=== PATIENT | female | born 1935 | race Caucasian/White ===

== ENCOUNTER 2020-03-08 12:21 | Outpatient (CLI) | payer MEDICARE, BC, SELFPAY ==
[2020-03-08 12:38] VITALS: BMI 26.4
[2020-03-08 13:28] LABS: Iron 14 ug/dL (37-170)
[2020-03-08 13:45] LABS: Total Iron Binding Capacity 386 ug/dL (265-497)
[2020-03-08 13:53] LABS: Basophils # 0.1 K/mm3 (0-0.2); Eosinophils # 0.1 K/mm3 (0.0-0.4); Eosinophils % 1.6 % (0.1-12.0); Lymphocytes # 1.2 K/mm3 (0.7-4.5); Lymphocytes % 20.5 % (10-50); Mean Corpuscular HGB Conc 37.6 g/dL (31.8-35.4); Mean Corpuscular Hemoglobin 29.4 pg (27.0-31.2); Mean Corpuscular Volume 78.2 fl (81-99); Mean Platelet Volume 7.3 fl (7.4-10.4); Monocytes # 0.5 K/mm3 (0.1-1.0); Monocytes % 9.2 % (1.7-9.3); Neutrophils # 3.8 K/mm3 (1.8-7.8); Neutrophils % 67.7 % (37.0-80.0); Platelet Count 514 K/mm3 (142-424); Red Blood Count 1.93 M/mm3 (4.20-5.40); White Blood Count 5.7 K/mm3 (4.8-10.8)
[2020-03-08 13:57] LABS: Hematocrit 15.1 % (37.0-47.0)
[2020-03-08 14:15] LABS: Hemoglobin 5.7 g/dL (12.2-16.2)
[2020-03-08 14:22] LABS: Reticulocyte % (Auto) 13.3 % (0.9-3.2)
[2020-03-08 14:35] LABS: Vitamin B12 396 pg/mL (239-931)
[2020-03-08 14:41] VITALS: BP 139/74; PULSE 75; RESP 20; TEMP 36.7; O2SAT 100
[2020-03-08 15:56] LABS: Ferritin 7.04 ng/ml (11.1-264)
== END 2020-03-08 14:35 | disposition home or self-care (01) ==
LOC: INF 12:27
PROVIDERS: PCP Family Medicine; Visit Provider Family Medicine
DX: D64.9 Anemia, unspecified (principal)
CPT/HCPCS: 36415; 82607; 82728; 82746; 83540; 83550; 85025; 85044; 86850; 86870

== ENCOUNTER 2020-03-09 08:12 | Outpatient (CLI) | payer MEDICARE, BC, SELFPAY ==
[2020-03-09] VITALS (30 sets, daily range): BP systolic 117–155; BP diastolic 49–90; PULSE 64–88; RESP 18; TEMP 36.2–36.6; O2SAT 97–99; BMI 27.3
[2020-03-09 17:11] LABS: Hematocrit 26.1 % (37.0-47.0); Hemoglobin 11.3 g/dL (12.2-16.2)
== END 2020-03-09 16:33 | disposition home or self-care (01) ==
LOC: INF 08:12
PROVIDERS: Visit Provider Family Medicine
DX: D64.9 Anemia, unspecified (principal)
CPT/HCPCS: 36430; 85014; 85018; P9016

== ENCOUNTER → 2020-04-20 07:12 | Outpatient (CLI) | payer MEDICARE, BC, SELFPAY ==
[2020-04-20 08:31] LABS: Coronavirus 19 IgG Antibody Negative (Negative); Coronavirus 19 IgM Antibody Negative (Negative)
== END ==
PROVIDERS: Visit Provider Internal Medicine Gastroenterology
DX: Z01.812 Encounter for preprocedural laboratory examination (principal)
CPT/HCPCS: 36415; 86328

== ENCOUNTER 2020-04-22 06:52 | Day surgery (SDC) | payer MEDICARE, BC, SELFPAY ==
[2020-04-18 07:48] VITALS: BMI 24.7
[2020-04-22] VITALS (7 sets, daily range): BP systolic 107–154; BP diastolic 57–72; PULSE 58–93; RESP 16–20; TEMP 36.5–37.1; O2SAT 97–100
--- NOTE | 2020-04-22 08:12 | P.PCN_ITS ---
[facility] Procedure Note Procedure Note:: Upper Endoscopy Procedure Report: Esophagogastroduodenoscopy with cold biopsies and TTS balloon dilation Endoscopost: Raghav Kaur II, MD Referring Physician: Ori Mackenzie MD Date of Procedure: April 22, 2020 Equipment: Olympus GIF 190 standard upper endoscope Sedation: MAC sedation Indications: Mrs. Huff is an 84-year-old female who is here for diagnostic upper endoscopy and colonoscopy secondary to iron deficiency anemia. She reports no melena, hematochezia or bright red blood per rectum. She previously had some throat tightness/globus sensation. She has had some reduced appetite with minor weight loss (5 pounds). She reports no use of anticoagulation or NSAIDs. She reports no heartburn, reflux, indigestion or dyspepsia. Procedure: Prior to the procedure, a history and physical exam was performed, and patient's medications and allergies were reviewed. The risks, benefits and alternatives of the sedation and procedure were discussed with the patient. All questions were answered and informed consent was obtained. The patient was brought to the procedure room. Patient identification and proposed procedure were verified by the physician and the nurse. The patient was placed in a left lateral decubitus position and the scope was passed under direct vision. Throughout the procedure, the patient's blood pressure, pulse, and oxygen saturations were monitored continuously. The upper GI endoscopy was accomplished without difficulty. The patient tolerated the procedure well. Findings: The scope was passed directly into the upper esophagus and advanced to the fourth portion of the duodenum and proximal jejunum. The post bulbar duodenum and duodenal bulb were normal with normal mucosa and conniventes. Cold biopsies were obtained to rule out celiac disease. The scope was withdrawn through a normal duodenal bulb and pylorus into the stomach. There was some mild reactive gastropathy of the antrum. There was mild chronic gastritis of the body and fundus of the stomach. Upon retroflexion there was a moderate/medium sized 4 to 5 cm hiatal hernia with linear John's erosions. Cold biopsies were taken from the antrum and body of the stomach to rule out H. pylori. The scope was then withdrawn into the esophagus. There was a serrated Z-line and biopsies were taken at the GE junction. There was also a distal Schatzki's ring. There was some presbyesophagus. The Schatzki's ring and esophagus was dilated maximally to 60 [place]/20 mm with a TTS hydrostatic balloon. The remainder of the esophageal mucosa was normal. Impression: 1. Medium sized 4 to 5 cm hiatal hernia with linear John's erosions 2. Schatzki's ring dilated to 20 mm 3. Presbyesophagus 4. Linear reactive gastropathy with mild chronic gastritis Plan: I do feel that the linear John's erosions are most likely responsible for her iron deficiency anemia. I would continue iron supplementation. I will follow-up the biopsies to rule out H. pylori and I will place her on PPI therapy and consider misoprostol. I will proceed with diagnostic colonoscopy.
--- NOTE | 2020-04-22 08:39 | HMH.PROC ---
[facility] Procedure Note Procedure Note:: Colonoscopy Procedure Report: Colonoscopy with cold snare polypectomy and cold biopsies Endoscopist: Raghav Kaur II, MD Referring physician: Ori Mackenzie MD Date of Procedure: April 22, 2020 Equipment: Olympus 190 variable stiffness pediatric colonoscope Sedation: MAC sedation Indication: Mrs. Huff is an 84-year-old female with iron deficiency anemia. She had a hemoglobin of 5.4 and hematocrit 21.1 with MCV of 71. She is currently on iron supplementation orally. She had 3 units of PRBCs transfused as an outpatient. Her iron studies confirmed iron deficiency anemia. She had a colonoscopy in 2014 and had no colon polyps. Her EGD showed John's erosions. She has had some lightheadedness and dyspnea on exertion. She reports no bright red rectal bleeding or hematochezia. She reports no abdominal pain or family history of colon cancer. She has had only minor weight loss. She reports no use of NSAIDs or anticoagulation. Procedure: Prior to the procedure, a history and physical exam was performed, and patient's medications and allergies were reviewed. The risks, benefits and alternatives of the sedation and procedure were discussed with the patient. All questions were answered and informed consent was obtained. The patient was brought to the procedure room. Patient identification and proposed procedure were verified by the physician and the nurse. The patient was placed in a left lateral decubitus position and the scope was passed under direct vision. Throughout the procedure, the patient's blood pressure, pulse, and oxygen saturations were monitored continuously. The colonoscopy was accomplished without difficulty. The patient tolerated the procedure well. Findings: On digital rectal examination there was normal rectal tone. There were no external hemorrhoids. The colonoscope was introduced through the anal canal to the rectum and advanced to the cecum. The ileocecal valve and appendiceal orifice were identified. The scope was advanced a short distance into the ileum which appeared grossly normal. The scope was then withdrawn into the colon. There was a single 3 mm polyp in the descending colon removed via cold snare polypectomy. There were extensive scattered diverticuli throughout the colon but more predominantly in the descending and sigmoid colon (LEFT colon). The rectum itself was normal. Upon retroflexion within the rectum there were grade 2-3 internal hemorrhoids. There was a small solitary rectal ulcer at the pectinate line possibly related to some rectal prolapse. The preparation was excellent throughout with [place] Preparation Score of 9. The cecal time was 12 minutes. Impression: 1. Diminutive descending polyp 2. Extensive pandiverticulosis 3. Grade 2-3 internal hemorrhoids with some rectal prophylaxis and small solitary rectal ulcer at pectinate line Plan: I do not feel that the findings are the etiology of her profound iron deficiency anemia. I do feel that this iron deficiency anemia is likely related to her John's erosions. I would like to do Hemoccult testing. I will also check hemogram and iron studies today. I would recommend outpatient parenteral iron infusion. She will not require any further preventive colonoscopy. If she is Hemoccult positive, I would consider PillCam (video capsule enteroscopy)
--- NOTE | 2020-04-22 08:50 | P.PN_ITS ---
[facility] Anesthesia Checklist - Patient Identification Patient Identification: Arm Band - Structural Data Admitted From: Home Planned Operative Procedure/s: egd/colonoscopy Consent for Planned Operative Procedure(s) Verified: Yes Verified Documents: Surgical Consent, History and Physical - NPO Status Verified Time NPO: 00:00 - Additional verifications Anesthesia Reactions: No - Airway Assessment C-Spine Mobility Assessed: Yes (mp2) TMJ Mobility Assessed: Yes Dentition: Good Dentition - Neurological Assessment Level of Consciousness: Awake, Alert - Anesthesia Plan Anesthesia Risk discussed: Yes Anesthesia Plan: Verified ASA Class: II Anesthesia Type: MAC [facility] History I have reviewed the patient's past medical history: Yes Medical History: Reports:: Anxiety, Hyperlipidemia, Hypertension Denies:: Cancer, Diabetes Mellitus Type 1, Diabetes Mellitus Type 2, Internal Pacemaker, MRSA, Seizures *Have you ever received a pneumonia vaccine?: Yes *Have you received a flu vaccine this season?: Yes Other Medical History: Reports: Anemia Anesthesia experience/problems:: nac Laterality Cases: Left: Arthroscopy Shoulder Other Surgeries: Yes: Appendectomy, Hysterectomy-Total, Other. No: Pacemaker Amputation: No - *Social History Last grade of school completed: High school graduate Smoking Status: Never smoker Alcohol Intake: never Substance Use Type: denies use *Occupational Status:: retired Housing: house Household Members: none *Travel in the last 8 weeks: None Family Hx:: Unable to obtain
[2020-04-22 10:15] LABS: Basophils % 0.6 % (0.1-2.0); Eosinophils % 0.3 % (0.1-12.0); Hematocrit 30.2 % (37.0-47.0); Lymphocytes # 1.1 K/mm3 (0.7-4.5); Lymphocytes % 19.7 % (10-50); Mean Corpuscular HGB Conc 36.3 g/dL (31.8-35.4); Mean Corpuscular Hemoglobin 31.2 pg (27.0-31.2); Mean Corpuscular Volume 86.2 fl (81-99); Monocytes # 0.3 K/mm3 (0.1-1.0); Monocytes % 5.4 % (1.7-9.3); Neutrophils # 4.3 K/mm3 (1.8-7.8); Platelet Count 250 K/mm3 (142-424); Red Blood Count 3.51 M/mm3 (4.20-5.40); White Blood Count 5.8 K/mm3 (4.8-10.8)
[2020-04-22 10:18] LABS: Red Cell Distribution Width 30.6 % (11.5-17.5)
[2020-04-22 10:27] LABS: Iron 41 ug/dL (37-170)
[2020-04-22 10:37] LABS: Total Iron Binding Capacity 282 ug/dL (265-497)
[2020-04-22 11:05] LABS: Ferritin 31.7 ng/ml (11.1-264)
== END 2020-04-22 09:35 | disposition home or self-care (01) ==
LOC: OUTP 06:54
PROVIDERS: PCP Family Medicine; Visit Provider Internal Medicine Gastroenterology
PROC: 0DJ08ZZ Inspection of Upper Intestinal Tract, Via Natural or Artificial Opening Endoscopic (ICD-10-PCS; CPT 43235; principal; 2020-04-22 08:00)
DX: K62.89 Other specified diseases of anus and rectum (principal); K63.5 Polyp of colon; K57.30 Diverticulosis of large intestine without perforation or abscess without bleeding; K64.1 Second degree hemorrhoids; K62.6 Ulcer of anus and rectum; K25.9 Gastric ulcer, unspecified as acute or chronic, without hemorrhage or perforation; K44.9 Diaphragmatic hernia without obstruction or gangrene; K22.2 Esophageal obstruction; K31.9 Disease of stomach and duodenum, unspecified; K29.50 Unspecified chronic gastritis without bleeding; K22.8 Other specified diseases of esophagus; D50.9 Iron deficiency anemia, unspecified; Z87.19 Personal history of other diseases of the digestive system
CPT/HCPCS: 43239; 43249; 45380; 45385; 36415; 82728; 83540; 83550; 85025; 88305; C1726

== ENCOUNTER → 2020-04-24 04:45 | Outpatient (CLI) | payer MEDICARE, BC, SELFPAY ==
[2020-04-25 17:51] LABS: Occult Blood,Stool Positive (Negative)
== END ==
PROVIDERS: Visit Provider Internal Medicine Gastroenterology
DX: D50.9 Iron deficiency anemia, unspecified (principal)
CPT/HCPCS: 82272; G0328

== ENCOUNTER 2020-04-25 09:42 | Outpatient (CLI) | payer MEDICARE, BC, SELFPAY ==
[2020-04-25 09:50] VITALS: BP 137/68; PULSE 59; RESP 18; TEMP 36.6; O2SAT 100
[2020-04-25 10:20] VITALS: BP 136/62; PULSE 60; RESP 18
== END 2020-04-25 10:20 | disposition home or self-care (01) ==
LOC: INF 09:42
PROVIDERS: Visit Provider Internal Medicine Gastroenterology
DX: D50.9 Iron deficiency anemia, unspecified (principal); K57.92 Diverticulitis of intestine, part unspecified, without perforation or abscess without bleeding
CPT/HCPCS: 82272; 96374; G0328; Q0138

== ENCOUNTER → 2020-04-25 16:43 | Outpatient (CLI) | payer MEDICARE, BC, SELFPAY ==
[2020-04-25 17:51] LABS: Occult Blood,Stool Positive (Negative)
[2020-04-26 11:14] LABS: Occult Blood,Stool Positive (Negative)
== END ==
PROVIDERS: Visit Provider Internal Medicine Gastroenterology
DX: D50.9 Iron deficiency anemia, unspecified (principal)
CPT/HCPCS: 82272; G0328

== ENCOUNTER → 2020-04-29 09:43 | Outpatient (CLI) | payer MEDICARE, BC, SELFPAY ==
[2020-04-29 10:05] VITALS: BP 140/68; PULSE 77; RESP 18; TEMP 36.1; O2SAT 95
[2020-04-29 10:28] VITALS: BP 142/64; PULSE 72; RESP 18
== END ==
PROVIDERS: Visit Provider Internal Medicine Gastroenterology
DX: D50.9 Iron deficiency anemia, unspecified (principal)
CPT/HCPCS: 96374; Q0138

== ENCOUNTER 2020-04-30 18:10 | Emergency (ER) | payer MEDICARE, BC, SELFPAY ==
[2020-04-30 18:20] VITALS: BP 140/70; PULSE 94; RESP 17; TEMP 37.4; O2SAT 98; BMI 21.9
--- NOTE | 2020-04-30 18:37 | HMH.EDUTC ---
[facility] [place] Disposition Clinical Impression: Nausea Disposition: Home, Self-Care Condition on Discharge: Good Instructions: DI for Nausea -- Adult, Ondansetron Additional Instructions: ? Avoid fruit juices, as these do not replace minerals and can actually increase diarrhea. ? Children and adults can use sports drinks to replenish electrolytes. Younger children and infants should use products formulated for children, like oral rehydration solutions. ? Eat food in small amounts and let your stomach recover. ? Get lots of rest. You may feel tired or weak. ? No greasy or fried foods for the next 24-48 hours BRAT diet Bananas Rice Apples and [place] ? Make sure to drink plenty of liquids ? Return if needed ? Straight to ER if any life threatening symptoms ? Zofran as prescribed ? Follow up with family doctor in the next 48-72 hours if no improvement or any worsening of symptoms Prescriptions: Ondansetron [Zofran 4mg ODT] 4 mg PO TIDP PRN #9 tab PRN Reason: Nausea Transmission Status: Received by [id number] Referrals: Cristiane Corrales MD [Primary Care Provider] - As needed Time of Disposition: 19:15 Medical Decision Making - Carlitos Inquiry Pt receiving controlled substance: No Carlitos was queried for this patient: No Vital Signs: 04/30/20 18:20 04/30/20 19:17 Temperature 99.3 F 99.3 F Temperature Source Oral Pulse Rate 94 H Pulse Rate [Right Brachial] 94 H Respiratory Rate 17 17 Blood Pressure 140/70 Blood Pressure [Right Arm] 140/70 Blood Pressure Mean [Right Arm] 93 Blood Pressure Source [Right Arm] Automatic Cuff Blood Pressure Position [Right Arm] Sitting 02 Sat by Pulse Oximetry 98 Oxygen Delivery Method Room Air - Lab Data Lab Results 04/30/20 18:45: Influenza Type A Ag Negative, Influenza Type B Ag Negative Orders (Tests/Meds): ED MEDICATIONS Discontinued Medications Generic Name Dose Route Start Last Admin Trade Name Freq PRN Reason Stop Dose Admin Ondansetron HCl 4 mg 04/30/20 18:39 04/30/20 18:49 Ondansetron 4mg Odt SL 04/30/20 18:40 4 mg ONCE ONE Administration ORDERS Category Date Time Status Covid-19 Nasal PCR ([facility]) Routine Lab 04/30/20 18:50 Received Medical Decision Narrative: Discussed with patient possible side effects after iron infusion and patient states that after zofran nausea is much better and almost gone Still denies any other symptoms Patient going to stay with family for a few days and family advised that if symptoms returned or worsened or if patient started having any bleeding from bowels, in stool or vomiting blood straight to ER patient denies any of those at this time [facility] [place] HPI - General Stated complaint: nausous Time Seen by Provider: 04/30/20 18:37 Mode of Arrival: Ambulatory Source of Information: Patient Limitations: No Limitations Description of Symptoms (Recalled from Triage Doc. by RN): PATIENT C/O FEVER, LIGHT HEADED, SHAKY, AND NAUSEA X 2 DAYS HEENT Symptoms (Recalled from RN notes): No Resp Symptoms (Recalled from RN notes): No Skin Symptoms (Recalled from RN notes): No MS Symptoms (Recalled from RN notes): No Functional Status (Recalled from RN notes): WNL - History of Present Illness Provider Complaint: Patient states that she got an iron infusion yesterday State that yesterday evening she was having some chills and having nausea States that today she was still having some chills and nausea States that she has not had any vomiting but felt like she was going too and her stomach was tossing like she was going to be sick. Son reports that she looked a little shaky and patient reports that she was chilling because she had a fever. Son states temp was 101.0 and they give her some Tylenol and fever came down and her chills/shakyness stopped Patient states that she was tested for COVID about a week and half ago but has been to the doctor several times and here to the hospital and unsure if she may have been exposed -
[2020-04-30 19:02] LABS: UTC Influenza A Antigen Negative (Negative); UTC Influenza B Antigen Negative (Negative)
[2020-04-30 19:17] VITALS: BP 140/70; PULSE 94; RESP 17; TEMP 37.4; O2SAT 98
== END 2020-04-30 19:18 | disposition home or self-care (01) ==
PROVIDERS: Emergency Provider Nurse Practitioner; PCP Family Medicine
DX: R42 Dizziness and giddiness (principal); R11.0 Nausea; Z20.822 Contact with and (suspected) exposure to COVID-19; Z91.040 Latex allergy status; E78.5 Hyperlipidemia, unspecified; I10 Essential (primary) hypertension; F41.9 Anxiety disorder, unspecified; Z79.899 Other long term (current) drug therapy
CPT/HCPCS: G0463; 87804; 99202; U0003

== ENCOUNTER → 2022-12-03 13:29 | Outpatient (CLI) | payer MEDICARE, BC, SELFPAY ==
--- NOTE | 2022-12-03 | CA_ITS ---
APPROVED REPORT EXAM: Comprehensive 2D, Doppler, and color-flow Echocardiogram Radio Antenna Installer: Lucía Zepeda CRT Ht: 5 ft 1 in Wt: 135lbs BSA: 1.60 BP: 140/70 mmHg Indications: Fatigue, Peripheral Edema, Hyperlipidemia, Hypertension/HDD 2D Dimensions LVOT 1.82 cm (M/F) 1.5-2.5 LA Volume 37.30 mL LA Volume Index 22.70 mL/m2 (M/F) 16-34 M-Mode Dimensions RVDd 2.84 cm (0.9-2.6) LA Diam 3.74 cm (1.9-4.0) LVDd 4.21 cm (3.5-5.7) Ao Diam 2.83 cm (2.0-3.7) LVDs 2.32 cm (3.5-5.7) IVSd 1.02 cm (0.6-1.1) PWd 0.73 cm (0.6-1.1) EF (Teich) 76.60% FS 44.90% EDV (Teich) 79.00 mL TAPSE 2.33 (<1.7) ESV (Teich) 18.50 mL LV Diastology E Decel Time 180.00 (160-240 msec) E/A Ratio 1.09 MED E' 9.30 (< 7 cm/sec) MED A' 11.80 cm/s E'/MED E' Ratio 11.23 (>14) LAT E' 9.60 (<10 cm/sec) LAT A' 11.60 cm/s E/LAT E' Ratio 10.88 (>14) Aortic Valve AI PHT 523.00 ms AO Peak GR. 13.60 mmHg Mitral Valve MV A Velocity 96.00 (40-130 cm/s) E/A Ratio 1.09 MV Decel. Time 180.00 (160-240 ms) Pulmonary Valve PV Peak Velocity 100.00 (50-150 cm/s) Tricuspid Valve TR P. Velocity 264.00 cm/s RAP Estimate 10.00 mmHg RVSP 37.90 mmHg Left Ventricle The left ventricle is normal size. The left ventricular systolic function is normal. The left ventricular ejection fraction is within the normal range. There is normal left ventricular wall thickness. There is normal LV segmental wall motion. The left ventricular diastolic function is normal. LVEF is 55%. Right Ventricle The right ventricle is normal size. The right ventricular systolic function is normal. Atria Left atrium is mildly dilated. The right atrium size is mildly dilated. There is no Doppler evidence of interatrial shunt. Aortic Valve THe aortic valve opens well. The aortic valve is trilaeflet. There is no aortic valvular stenosis. Mild aortic regurgitation. Mitral Valve Mild mitral annular calcification. The mitral valve leaflets are mildly thickened. No evidence of mitral valve stenosis. Mild mitral regurgitation. Tricuspid Valve The tricuspid valve leaflets are thin and pliable. Mild tricuspid regurgitation. RVSP is 25-30 mmHg. Pulmonic Valve The pulmonary valve is normal in structure. Trace pulmonic regurgitation. Great Vessels The aortic root is normal in size. The ascending aorta is normal in size. IVC is normal in size and collapses >50% with inspiration. Pericardium There is no pericardial effusion. Other Information Study Quality: Fair Conclusion Normal biventricular systolic function. Mild biatrial dilation. Mild AI, MR, TR. Electronically signed by : Della Sheldon MD 12/04/2022 23:14:37
== END ==
PROVIDERS: PCP Family Medicine; Visit Provider Family Medicine
DX: R60.0 Localized edema (principal); I10 Essential (primary) hypertension; R53.83 Other fatigue; R63.5 Abnormal weight gain
CPT/HCPCS: 93306

== ENCOUNTER 2024-08-10 08:44 | Emergency (ER) | payer MEDICARE, BC, SELFPAY ==
[2024-08-10] VITALS (10 sets, daily range): BP systolic 130–174; BP diastolic 67–105; PULSE 56–74; RESP 16–18; TEMP 36.6–36.7; O2SAT 90–98; BMI 28.3
--- NOTE | 2024-08-10 08:54 | ECG_ITS ---
APPROVED REPORT Exam: Resting ECG HR:63 bpm ECG Measurements Heart Rate 63 AXES UT 208 P 91 QRSd 86 QRS 74 QT 363 T 67 QTc 370 Conclusion SINUS RHYTHM LOW QRS VOLTAGE IN PRECORDIAL LEADS [QRS DEFLECTION < 1.0 mV IN CHEST LEADS] No STEMI Electronically signed by : DEBI PARSONS, 08/11/2024 02:30:35
--- OUTSIDE RECORDS SUMMARY | 2024-08-10 09:10 | XMS_ITS | Data Portability ---
Author Organization [facility]EN[facility] Address [address] [place] [address] Care Team Providers Care Rodeo Rider Name Role Phone SONIA BULL Primary Care Provider [phone] Assessment Encounter Date Assessment Date Assessment LastModified by Organization Details LastModified Time 11/15/2020 11/15/2020 ASSESSMENT: DJD left knee PLAN: Fabiana has fairly advanced degenerative changes radiographically. Waning efficacy from steroid injections. We did discuss additional conservative and surgical treatment options. She has had some relief with viscosupplementation in the remote past, and is interested in hyaluronic acid once again. I would recommend Synvisc today, which she is amenable to. She will continue with Tylenol, and activity modification as needed. We will arrange for follow-up in 4 months time. If no relief from Synvisc, we can consider TKA as a definitive surgical option. [email or web address] Not available 11/15/2020 14:47:37 Plan of Treatment Reminders Order Date Submit Date Provider Last Modified By Organization Details Last Modified Time Details Appointments None record ed. Lab None record ed. Referral None record ed. Procedures None record ed. Surgeries None record ed. Imaging None record ed. Medication Orders None record ed. Patient TargetsNo targets recorded. Patient InstructionsNo instructions recorded. Reason for Referral None Reported. Results Created Date Observation Date Name Description Value Unit Range Abnormal Flag Note LastModifiedBy Organization Detail LastModifiedTime 09/17/19 24 09/17/2023 XR, knee, 4 or [facility] [address] [place] [address] Lori riggs Name: FABIANA Bridges JUANIS Bee : [birth year] 36 Patien t 08 Orderi ng Provid er: NASIR BURLINGTON EXAM DATE: 2023 EXAM: XR CODY KNEES COMPLE TE, 4 OR MORE VWS HISTOR Y: Bilate ral knee pain COMPAR PAUL: 021 FINDIN GS: There are severe degene rative change s in the left knee and modera te degene rative change s in the right knee. There is margin al spurri ng and medial joint space loss which is more promin ent on the left. No fractu re is identi fied. There is chondr ocalci nosis. IMPRES NATALIE: 1. There are severe degene rative change s in the left knee and modera te degene rative change s in the right knee. Interp reted By: Camden vines MD Electr onical ly Signed By: Camden vines MD on 09/17/19 9:13 AM [email or web address] [facility] [place] [address], [place], [address], 09/17/2023 10:52:40 09/17/19 24 09/17/2023 XR, hip, unila teral , 2 or 3 view [facility] [address] [place] [address] Lori riggs Name: FABIANA Bee : [birth year] 36 Patigregory t 08 Orderi ng Provid er: [facility] EXAM DATE: 2023 EXAM: XR RT HIP UNILAT ERAL, 2 OR 3 VWS COMPAR PAUL: HISTOR Y: Right hip pain. FINDIN GS: No fractu re is identi fied. There are mild degene rative change s in the right hip. There is minima l to mild medial joint space loss. There is mild margin al spurri ng. Limite d visual izatio n of the contra latera l hip demons trates mild degene rative change . IMPRES NATALIE: 1. There are mild degene rative change s in the right hip. Interp reted By: Camden vines MD Electr onical ly Signed By: Camden vines MD on 09/17/19 9:13 AM [email or web address] [facility] [place] [address] [place], [address], 09/17/2023 10:52:41 Result Notes Documentation Provider Name and Address Organization Details Recorded Time Xr, Knee, 4 Or More View : [facility] [place] [address] [place] [address] Patient Name: FABIANA STEIN Patient : 1935 Patient Ordering Provider: NASIR STOCK EXAM DATE: 09/17/2023 EXAM: XR CODY KNEES COMPLETE, 4 OR MORE VWS HISTORY: Bilateral knee pain COMPARISON: 07/28/2020 FINDINGS: There are severe degenerative changes in the left knee and moderate degenerative changes in the right knee. There is marginal spurring and medial joint space loss which is more prominent on the left. No fracture is identified. There is chondrocalcinosis. IMPRESSION: 1. There are severe degenerative changes in the left knee and moderate degenerative changes in the right knee. Interpreted By: Sean Mcfarland MD R STOCK PA-C [address] [place] [address], [address], [facility] 09/17/2023 10:52:40 Xr, Hip, Unilateral, 2 Or 3 View : [facility] [place] [address] [place] [address] Patient Name: FABIANA STEIN Patient : 1935 Patient Ordering Provider: NASIR STOCK EXAM DATE: 09/17/2023 EXAM: XR RT HIP UNILATERAL, 2 OR 3 VWS COMPARISON: 07/28/2020 HISTORY: Right hip pain. FINDINGS: No fracture is identified. There are mild degenerative changes in the right hip. There is minimal to mild medial joint space loss. There is mild marginal spurring. Limited visualization of the contralateral hip demonstrates mild degenerative change. IMPRESSION: 1. There are mild degenerative changes in the right hip. Interpreted By: Sean Mcfarland MD R STOCK PA-C [address] [place], [address], [facility] 09/17/2023 10:52:41 Problems No Known Problems Procedures Surgical History Date Name Laterality Status Provider Name and Address Organization Details Recorded Time 4 Synvisc One Injection completed Dilan Roth [facility] 09/10/2023 15:48:28 4 Synvisc One Injection completed Josefina Ho [facility] 03/12/2023 13:55:18 3 Injection Joint/Bursa, Major cancelled Paige Chapman [facility] 06/01/2022 12:09:14 3 Injection Joint/Bursa, Major completed Paige Chapman [facility] 03/21/2022 08:03:34 2 Injection Joint/Bursa, Major completed Sergio Wilson [facility] 06/27/2021 15:50:55 1 Synvisc One Injection completed KAYLEE RODRIGUEZ MD [address] [place], [address], [facility] 11/15/2020 14:46:39 1 Injection Joint/Bursa, Major completed Josefina Ho [facility] 07/28/2020 10:35:24 0 Injection Joint/Bursa, Major completed Sergio Wilson [facility] 10/01/2019 12:00:12 9 Injection Joint/Bursa, Major completed Sergio Wilson [facility] 11/04/2018 14:59:40 8 Injection Joint/Bursa, Major completed Sergio Wilson [facility] 12/31/2017 11:16:56 8 Injection Joint/Bursa, Major completed Emilie Mckenna [facility] 02/12/2017 14:58:00 7 Injection Joint/Bursa, Major completed KAYLEE RODRIGUEZ MD [address] [place], [address], [facility] 08/23/2016 10:25:03 Imaging Results None recorded. Procedure Notes None recorded. Medical Equipment None Reported. Allergies Allergen ID Allergen Name Allergen Category Reaction Reaction Severity Criticality Documentation Date Start Date Code Code System Note Provider Name and Address Organization Details Recorded Time 293620 latex environme nt,medica tion Not available Not available Not available 08/23/2016 15805 91 RxNorm Disha Eric butler [facility] 7 09:38:06 Medications Name Sig Start Date Stop Date Status Note LastModified by Organization Details LastModified Time meclizine 12.5 mg tablet Take 2 tablets 3 times a day by oral route. active Not Available Not Available No t Available potassium chloride 20 mEq oral packet Take 1 packet 4 times a day by oral route. active Not Available Not Available No t Available ferrous sulfate 325 mg (65 mg iron) tablet Take 1 tablet every day by oral route. active Not Available Not Available No t Available losartan 100 mg-hydrochlo rothiazide 12.5 mg tablet Take 1 tablet every day by oral route. active Not Available Not Available No t Available atorvastatin active Not Available Not Available Not Available valsartan 11/15 completed Not Available Not Available Not Available aspirin 11/15 completed Not Available Not Available Not Available metoprolol tartrate active Not Available Not Available Not Available clonazepam 11/15 completed Not Available Not Available Not Available Vitamin D2 active Not Available Not Av ailable Not Available Vitals Date Recorded Body height Provider Name an d Address Organization Details Last Updated DateTime 03/12/2023 154.94 cm Josefina Ho [facility] 03/12/2023 13:52:39 Date Recorded Body height Provider Name an d Address Organization Details Last Updated DateTime 03/21/2022 154.94 cm Paige Chapman [facility] 0 03/21/2022 08:03:13 Date Recorded Body height Body mass index (BMI) Body weight Systolic blood pressure Diastolic blood pressure Provider Name and Address Organization Details Last Updated DateTime 06/27/2021 154.94 cm 24.9 kg/m2 22704.19 g 120 mm[Hg] 80 mm[Hg] Sergio Wilson [facility] 15:50:32 Date Recorded Body height Provider Name an d Address Organization Details Last Updated DateTime 09/17/2023 154.94 cm Josefina Ho [facility] 09/17/2023 08:59:38 Date Recorded Body height Body mass index (BMI) Body weight Systolic blood pressure Diastolic blood pressure Provider Name and Address Organization Details Last Updated DateTime 11/15/2020 154.94 cm 24.9 kg/m2 69310.19 g 125 mm[Hg] 85 mm[Hg] Sergio Steve [facility] 13:46:53 Social History Question Answer Notes LastModified by Organizat ion Details LastModified Time Tobacco Smoking Status Never Smoker Disha butler [facility] 08/23/2016 09:40:11 What Was The Date Of Your Most Recent Tobacco Screening? 02/12/2017 Information n ot available 03/31/2019 Sex: Unknown Functional Status None recorded. Mental Status None recorded. Family History Nothing Reported. Medical History No medical history recorded. Gynecological HistoryNo gynecological history recorded. 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 M19.91 [id number] KAYLEE Kent MD [facility] [address] [place] [address] 02/12/2017 14:12:17 02/12/2017 15:21:41 Idiopathic osteoarthritis 721338471 M19.91 [id number] KAYLEE Kent MD [facility] [address] [place] [address] 12/31/2017 10:41:27 12/31/2017 11:40:43 Osteoarthritis of knee 085534065 M17.0 [id number] KAYLEE Kent MD [facility] [address] [place] [address] 11/04/2018 14:22:23 11/04/2018 15:20:12 Osteoarthritis of knee 276478280 M17.0 [id number] KAYLEE Kent MD [facility] [address] [place] [address] 10/01/2019 11:06:43 10/01/2019 12:15:31 Osteoarthritis of knee 187697096 M17.0 [id number] KAYLEE Kent MD [facility] [address] [place] [address] 07/28/2020 09:44:06 07/28/2020 11:23:16 Osteoarthritis of knee 575683707 M17.0 [id number] KAYLEE Kent MD [facility] [address] [place] [address] 11/15/2020 13:38:34 11/15/2020 14:41:04 Osteoarthritis of knee 245396841 M17.0 [id number] KAYLEE Kent MD [facility] [address] [place] [address] 06/27/2021 15:24:20 06/27/2021 16:53:06 Osteoarthritis of knee 059641256 M17.0 Bilateral CSI today. Follow-up as needed. [id number] BRIAN JURADO PA-C [facility] [address] [place] [address] 03/21/2022 07:57:27 03/21/2022 08:47:44 Osteoarthritis of right knee joint 2284931437 96080 M17.11 Osteoarthr itis of left knee joint 1846807775 07329 M17.12 [id number] KAYLEE Kent MD [facility] [address] [place] [address] 03/12/2023 13:44:57 03/12/2023 14:39:16 Bilateral osteoarthritis of knees 9558795021 41359 M17.0 Bilateral Synvisc today. Follow-up in 6 months for repeat Synvisc. At that point, we will obtain repeat x-rays of both knees, and the right hip. [id number] KAYLEE Kent MD [facility] [address] [address] 09/17/2023 08:53:18 09/17/2023 10:27:59 Bilateral osteoarthritis of knees 2174518002 17322 M17.0 Bilateral Synvisc today. Follow-up in 6 months for repeat Synvisc. If no significan t relief, we may need to discuss proceeding to TKA, especially on the left side Health Concerns Section Related Observation LastModified by Organization Detai ls LastModified Time None Recorded Concern Status LastModified by Organization Details LastModified Time None Recorded Advance Directives Directive None Recorded Payers Insurance Date Sequence Insurance Name Policy Number Policy Zuñiga Covered Member ID Zuñiga Member ID Guarantor Name 09/10/2016 2 UNSPECIFIED REMIT PAYOR Fabiana Stein 09/17/2023 1 [place] Fabiana Stein [id number] Fabiana Stein 09/23/2023 2 [place] [id number] Fabiana Stein [id number] Fabiana Stein Notes Date Note Type Note Provider Name and Address Organization Details Recorded Time 11/15/2020 text/html 11-15-20: Ms. Stein returns today in follow-up primarily on her left knee. Waning efficacy from steroid injections on that side. Previous injections have conferred nearly 9 months of relief, but her most recent injection in July, conferred only 2 months of relief. She continues to experience excellent relief from her right knee CSI given on the same day. No new trauma. She reports fairly global pain, crepitus, and mechanical symptoms. She rates her pain at 5/10 on average. KAYLEE RODRIGUEZ MD [facility] [place], [address], [facility] 11/15/2020 14:52:08 06/27/2021 text/html 06-27-21: No significant relief from Synvisc injections in November. Requesting bilateral CSI today. 11-15-20: Ms. Stein returns today in follow-up primarily on her left knee. Waning efficacy from steroid injections on that side. Previous injections have conferred nearly 9 months of relief, but her most recent injection in July, conferred only 2 months of relief. She continues to experience excellent relief from her right knee CSI given on the same day. No new trauma. She reports fairly global pain, crepitus, and mechanical symptoms. She rates her pain at 5/10 on average. KAYLEE RODRIGUEZ MD [address] [place], [address], [facility] 06/27/2021 17:01:45 03/12/2023 text/html 03-12-23: No significant improvement from bilateral CSI in March. Did not would like to revert back to Synvisc today. 03-31-22: Bilateral knee CSI 06-27-21:No significant relief from Synvisc injections in November. Requesting bilateral CSI today. 11-15-20: Ms. Stein returns today in follow-up primarily on her left knee. Waning efficacy from steroid injections on that side. Previous injections have conferred nearly 9 months of relief, but her most recent injection in July, conferred only 2 months of relief. She continues to experience excellent relief from her right knee CSI given on the same day. No new trauma. She reports fairly global pain, crepitus, and mechanical symptoms. She rates her pain at 5/10 on average. KAYLEE RODRIGUEZ MD [address] [place], [address], [facility] 03/12/2023 14:44:09 09/17/2023 text/html 09/16/23;Patient here for Cody knee synvisc injections marginal relief from last Synvisc injections in February. Prior to that, waning efficacy from CSI. 03-12-23:No significant improvement from bilateral CSI in March. Adna would like to revert back to Synvisc today. 03-31-22:Bilateral knee CSI 5-17-22:No significant relief from Synvisc injections in November. Requesting bilateral CSI today. 11-15-20: Ms. Stein returns today in follow-up primarily on her left knee. Waning efficacy from steroid injections on that side. Previous injections have conferred nearly 9 months of relief, but her most recent injection in July, conferred only 2 months of relief. She continues to experience excellent relief from her right knee CSI given on the same day. No new trauma. She reports fairly global pain, crepitus, and mechanical symptoms. She rates her pain at 5/10 on average. KAYLEE RODRIGUEZ MD [facility] [place], [address], [facility] 09/17/2023 18:30:27 OBGyn Episode No OBEpisode recorded.
--- NOTE | 2024-08-10 09:43 | CT_ITS ---
FINAL REPORT TECHNIQUE: Axial images were obtained of the lumbar spine by computed tomography. Coronal and sagittal reconstruction process performed. This study was performed with techniques to keep radiation doses as low as reasonably achievable (ALARA). Individualized dose reduction techniques using automated exposure control or adjustment of mA and/or kV according to the patient's size were employed. CLINICAL HISTORY: atraumatic back pain COMPARISON: None FINDINGS: CT LUMBAR SPINE: There is gliosis of the bar spine with a bush angle. There is minimal spondylolisthesis of L3 on L4, likely degenerative. L1-2: A mild annular bulge is present with mild bilateral neural foraminal narrowing. L2-3: Mild right neural foraminal narrowing is noted without significant canal stenosis. L3-4: A mild to moderate bulge is present, eccentric to the right, producing moderate right and mild left neural foraminal narrowing. L4-5: A moderate annular bulge is present with endplate hypertrophy eccentric to the left, producing moderate left and mild right neural foraminal narrowing. L5-S1: There is a mild posterolateral disc protrusion eccentric to the left producing moderate left neuroforaminal narrowing. IMPRESSION: Multilevel degenerative changes present as described above, without acute bony abnormality. Reviewed, Interpreted and Dictated by Naga Henderson MD Transcribed by Tootie Villareal Authenticated and . [facility]
--- NOTE | 2024-08-10 09:43 | CT_ITS ---
FINAL REPORT TECHNIQUE: After the administration of oral and intravenous contrast, axial images were obtained through the abdomen and pelvis by computed tomography. The study was performed with techniques to keep radiation dose as low as reasonably achievable, (ALARA). Individual dose reduction techniques using automated exposure control or adjustment of mA and/or kV according to the patient's size were employed. CLINICAL HISTORY: severe b/l nagging low back pain COMPARISON: None FINDINGS: CT ABDOMEN PELVIS WITH CONTRAST: Abdomen: The lung bases are clear. There is a large hiatal hernia, with at least half of the stomach within the chest cavity. There is fatty infiltration of the liver. The gallbladder is present. The spleen, pancreas, and adrenals appear unremarkable. Bilateral benign-appearing renal cysts are noted. The aorta is normal in caliber. There is no free fluid or adenopathy. Pelvis: The appendix is not identified. There is diverticulosis of the sigmoid colon without acute inflammatory change. The urinary bladder is incompletely distended. There is no free fluid or adenopathy. IMPRESSION: No acute intra-abdominal process. Note is made of a large hiatal hernia. Diverticulosis of the sigmoid colon without acute inflammatory change. Reviewed, Interpreted and Dictated by Naga Henderson MD Transcribed by Tootie Villareal Authenticated and [facility]
--- NOTE | 2024-08-10 09:43 | CT_ITS ---
FINAL REPORT CLINICAL HISTORY: low back pain and SI joint pain b/l COMPARISON: None FINDINGS: Axial images through the pelvis were performed by computed tomography. Sagittal and coronal reconstruction images were performed. This study was performed with techniques to keep radiation doses as low as reasonably achievable (ALARA). Individualized dose reduction techniques using automated exposure control or adjustment of mA and/or kV according to the patient's size were employed. No fracture is identified. No dislocation identified. No significant degenerative changes identified. No soft tissue abnormality. The sacroiliac joints are unremarkable in appearance. There are small mild degenerative cysts noted in the femoral heads bilaterally. IMPRESSION: No acute process. Reviewed, Interpreted and Dictated by Naga Henderson MD Transcribed by Tootie Villareal Authenticated and [facility]
--- NOTE | 2024-08-10 09:45 | HMH.EDGENADL ---
Discharge Plan Disposition Patient Disposition: Home, Self-Care Prescriptions Prescriptions: No Action atorvastatin 10 MG tablet 10 mg PO HS clonazepam 0.5 MG tablet 0.5 mg PO TID Rx Instructions: 1 tab in the am, 2 tabs at bedtime meclizine 12.5 MG tablet 12.5 mg PO NEEDED PRN (Reason: Dizziness) ergocalciferol (vitamin D2) 50,000 UNIT capsule 50,000 unit PO WEEKLY metoprolol tartrate 25 MG tablet 25 mg PO BID losartan-hydrochlorothiazide 1 EACH tablet 1 each PO DAILY potassium chloride 20 MEQ tablet extended release 20 meq PO DAILY ferrous sulfate 325 MG tablet 325 mg PO DAILY ondansetron 4 MG tablet,disintegrating 4 mg PO TIDP PRN (Reason: Nausea) Qty: 9 0RF Referrals Follow up/Referrals: Ori Mackenzie MD [Primary Care Provider, Medical] - See instructions Activity Restrictions/Add. Instructions Additional Instructions/Restrictions: At this time it was felt you are safe to be discharged home. If new or worsening symptoms please do not hesitate to return the emergency department. I have not found any dangerous causes of back pain for you today and suspect that it is a combination of arthritis and may be you pulled a muscle without knowing or slipped disc. Please follow-up with your family doctor for continued evaluation to ensure things are headed in the right direction as this should heal over the course of many weeks. Clinical Impressions Clinical Impression: Back pain, Sacroiliac joint pain Instructions Patient Instructions: DI for Low Back Pain Print Language Print Language: Mosotho Discharge ED Provider: Brando Pineda General Adult HPI General Chief complaint: Back Pain/Injury Stated complaint: Severe Pain in Lower Back; SOA Time Seen by Provider: 08/10/24 09:10 Mode of Arrival: Ambulatory Source of Information: Patient Description of Symptoms (Recalled from ER Triage Doc. by RN): pt presents to the ED with lower back pain. pt states that the back pain started 3 days ago that goes across her lower back. pt reports that she started shortness of breath yesterday from the pain. Nausea noted. Denies chest pain. No known recent inuury. History of Present Illness HPI narrative: Patient is 89-year-old female with past medical history of hypertension, hyperlipidemia, largely healthy who presents emergency department for evaluation of back pain and hip pain. Onset was acute over the last 3 days, going across her lower back and her bilateral hip joints. Atraumatic. Says that she has been having some nagging discomfort for some time. No dysuria no abdominal pain no vomiting no chest pain no other acute complaints at this time. Please note that above description of symptoms, in this electronic medical record under categorization of recalled from ER triage doctor by RN are reflective of an initial nursing assessment, however, is not reflective of my full history and physical exam that was personally taken and clarified. Consequentially, this preceding description of symptoms, which may include the patient's categorized chief complaint in the EMR, do not reflect my personal clinical impression, and the ultimate description of history of present illness and patient stated complaints should be deferred to this section of the note. Unless stated otherwise or congruent with this section of the note, additional signs, symptoms, or incongruence should be interpreted as inaccurate with my clinical impression. Related Data Home Medications ?Medication ?Instructions ?Recorded ?Confirmed atorvastatin 10 mg tablet 10 mg PO HS High cholesterol 03/08/20 04/25/20 clonazepam 0.5 mg tablet 0.5 mg PO TID Anxiety 03/08/20 04/25/20 ergocalciferol (vitamin D2) 1,250 50,000 unit PO WEEKLY Supplement 03/08/20 04/25/20 mcg (50,000 unit) capsule losartan 100 1 each PO DAILY blood pressure 03/08/20 04/25/20 mg-hydrochlorothiazide 12.5 mg tablet meclizine 12.5 mg tablet 12.5 mg PO NEEDED PRN Dizziness 03/08/20 04/25/20 metoprolol tartrate 25 mg tablet 25 mg PO BID blood pressure 03/08/20 04/25/20 potassium chloride 20 mEq 20 meq PO DAILY Supplement 03/08/20 04/25/20 tablet,extended release ferrous sulfate 325 mg (65 mg 325 mg PO DAILY anemia 04/18/20 04/25/20 iron) tablet Previous Rx's ?Medication ?Instructions ?Recorded ondansetron 4 mg disintegrating 4 mg PO TIDP PRN Nausea #9 tabs 04/30/20 tablet Allergies Allergy/AdvReac Type Severity Reaction Status Date / Time latex Allergy Verified 04/19/20 12:16 [facility] Disclaimer: The information contained in this section may have been updated after the patient was seen, as this information can be updated by other users. Social History Smoking Status: Never smoker alcohol intake: never substance use type: denies use current occupational status: other Travel in the last 8 weeks?: None household members: none housing: house caffeine: Yes Have you lived/traveled outside [place] in past 30 days?: No Contact w/someone who lives/traveled outside [place] past 30 days?: No Exposure to someone with infectious disease in past 14 days?: No Do you have a fever (greater than 100.4 F or 38 C)?: No Have you tested positive for COVID-19?: No Exposed to someone with COVID-19 in past 14 days?: No Do you have a sore throat?: No Do you have a cough?: No Do you have any weakness?: No Do you have any diarrhea?: No Are you experiencing any unusual bleeding?: No Do you have any muscle aches/pain?: No Do you have any abdominal pain?: No Are you experiencing loss of taste or smell?: No Other Medical History Have you received the Flu Vaccine for this season: Yes Have you received the Pneumonia Vaccine: Yes ROS Obtained: Yes Systems reviewed as appropriate & no additional complaints except as documented Physical Exam General General appearance: alert Comment: Appearing uncomfortable in bed Head Head exam: atraumatic and normocephalic Eye Eye exam: Present PERRL and EOMI ENT ENT exam: Present mucous membranes moist Neck Neck exam: Present normal inspection Chest Chest inspection: Present normal inspection and symmetric chest wall rise Respiratory Respiratory exam: Present normal lung sounds bilaterally; Absent respiratory distress Cardiovascular Cardiovascular exam: Present regular rate and normal rhythm Abdominal Exam Abdominal exam: Present soft; Absent tenderness Extremities Exam Extremities exam: Present normal inspection Back Exam Back exam: Present other (Diffuse tenderness over the lumbar spine midline and bilateral sacroiliac joints. No overlying skin changes.) Neurological Exam Neurological exam: Present alert Psychiatric Psychiatric exam: Present normal affect Skin Skin exam: Present warm and dry Medical Decision Making Medical Records Screening: Per USPSTF and CDC recommendations, given the prevalence of disease in our region, it is our hospital?s policy to screen for HIV and viral Hepatitis for all patients aged 18 and over and those with ongoing risk factors. [place] Inquiry Pt receiving controlled substance: No Vital Signs: 08/10/24 08:58 08/10/24 09:00 08/10/24 09:03 Temperature 98.0 F 98 F Temperature Source Oral Oral Pulse Rate 56 L 74 Pulse Rate [Right] 74 Respiratory Rate 16 18 16 Blood Pressure 156/69 H 161/69 H Blood Pressure [Right Arm] 161/69 H Blood Pressure Mean 134 Blood Pressure Mean [Right Arm] 99 Blood Pressure Source Automatic Cuff Blood Pressure Source [Right Arm] Automatic Cuff Blood Pressure Position Supine Blood Pressure Position [Right Arm] Supine 02 Sat by Pulse Oximetry 97 97 97 Oxygen Delivery Method Room Air Room Air 08/10/24 09:30 08/10/24 10:00 08/10/24 10:56 Temperature Temperature Source Pulse Rate 64 61 Pulse Rate [Right] Respiratory Rate 18 Blood Pressure 153/70 H 164/74 H 135/89 Blood Pressure [Right Arm] Blood Pressure Mean 133 104 Blood Pressure Mean [Right Arm] Blood Pressure Source Blood Pressure Source [Right Arm] Blood Pressure Position Blood Pressure Position [Right Arm] 02 Sat by Pulse Oximetry 98 96 Oxygen Delivery Method 08/10/24 11:00 08/10/24 11:40 08/10/24 12:01 Temperature Temperature Source Pulse Rate 56 L 65 59 L Pulse Rate [Right] Respiratory Rate 18 Blood Pressure 130/105 H 174/67 H 145/75 H Blood Pressure [Right Arm] Blood Pressure Mean 102 Blood Pressure Mean [Right Arm] Blood Pressure Source Blood Pressure Source [Right Arm] Blood Pressure Position Blood Pressure Position [Right Arm] 02 Sat by Pulse Oximetry 90 L 96 95 Oxygen Delivery Method Lab Data Lab Results 08/10/24 10:30: WBC 9.6, RBC 3.83 L, Hgb 12.0 L, Hct 35.6 L, MCV 93.0, MCH 31.3 H, MCHC 33.7, RDW 14.3, Plt Count 255, MPV 9.8, Neut % (Auto) 73.5, Lymph % (Auto) 16.7, [place] % (Auto) 7.9, Eos % (Auto) 0.9, Baso % (Auto) 0.5, Neut # (Auto) 7.1, Lymph # (Auto) 1.6, [place] # (Auto) 0.8, Eos # (Auto) 0.1, Baso # (Auto) 0.1, Sodium 139, Potassium 4.7, Chloride 102, Carbon Dioxide 27, Anion Gap 14.7, BUN 27 H, Creatinine 1.10 H, Estimated Creat Clear 36, Estimated GFR 47 L, Est GFR ( Amer) 57 L, Glucose 117 H, Calcium 9.2, Total Bilirubin 0.6, AST 27, ALT 21, Alkaline Phosphatase 75, Total Protein 7.0, Albumin 4.4, Globulin 2.6, Albumin/Globulin Ratio 1.7 08/10/24 11:55: Urine Color Yellow, Urine Appearance Clear, Urine pH 6.0, Ur Specific [place] <= 1.005, Urine Protein Negative, Urine Glucose (UA) Negative, Urine Ketones Negative, Urine Blood Trace-i, Urine Nitrate Negative, Urine Bilirubin Negative, Urine Urobilinogen 0.2, Ur Leukocyte Esterase Negative, Urine RBC None, Urine WBC Occasional, Ur Squamous Epith Cells Occasional, Urine Bacteria Trace 08/10/24 10:30 08/10/24 10:30 Orders (Tests/Meds): ED MEDICATIONS Discontinued Medications Generic Name Dose Route Start Last Admin Trade Name Freq PRN Reason Stop Dose Admin Acetaminophen 1,000 mg 08/10/24 09:43 08/10/24 09:50 Acetaminophen 500mg Tab PO 08/10/24 09:44 1,000 mg ONCE ONE Administration Iopamidol 75 ml 08/10/24 11:19 08/10/24 11:22 Iopamidol-370 (76%);100ml Bottle IV 08/10/24 11:20 75 ml ONCE ONE Administration Lidocaine 1 each 08/10/24 09:43 08/10/24 09:50 Lidocaine 5% Transdermal Patch TD 08/10/24 09:44 1 each ONCE ONE Administration Methocarbamol 1,000 mg 08/10/24 09:45 08/10/24 09:50 Methocarbamol 500mg Tablet PO 08/10/24 09:46 1,000 mg ONCE ONE Administration Sodium Chloride 10 ml 08/10/24 11:19 08/10/24 11:22 Sodium Chloride 0.9% 10ml Syr (Rad Only) IV 08/10/24 11:20 10 ml ONCE ONE Administration ORDERS Category Date Time Status CT abdomen pelvis w con Stat Cat Scan 08/10/24 09:[address] bony pelvis Stat Cat Scan 08/10/24 09:[address] lumbar spine wo con Stat Cat Scan 08/10/24 09:43 Completed CBC w/Auto Diff [Complete Blood Count Auto Diff] Stat Lab 08/10/24 10:30 Completed CMP [Comprehensive Metabolic Panel] Stat Lab 08/10/24 10:30 Completed UA [Urinalysis and Microscopic] Stat Lab 08/10/24 11:55 Completed ECG Data Tracing #1: Independently inter by me rate is 63, rhythm is regular, axis is normal, no ST elevation in anatomical contiguous leads, QTc 370. Medical Decision Narrative: In summary patient is a 89-year-old female past medical history Ricardo above presents emergency department for evaluation of atraumatic back pain. Patient is hemodynamically stable and appearing uncomfortable upon arrival, afebrile. Differential diagnosis includes musculoskeletal back pain, insufficiency fracture, metastatic disease with new diagnosis of malignancy, urinary tract infection, among others. Workup will be conducted in totality with hematologic labs CT of the abdomen pelvis with IV contrast CT bony pelvis CT lumbar spine. Initial inventions include Tylenol and methocarbamol. Initial workup reviewed by me, hematologic labs are nonactionable no significant leukocytosis or anemia no NAYA or critical electrolyte abnormality. Urinalysis interpreted by me and not consistent with infection. CT lumbar spine sagittal view informally interpreted by me no 3 column fracture. Formal reads there is an incidental large hiatal hernia and diverticulosis without evidence of diverticulitis. Given this patient underwent ambulatory trial and was successful was appropriate for outpatient management at this time was given return precautions. Critical Care Critical Care Time Critical Care Time: No
[2024-08-10] MEDS: LIDOCAINE 5% TRANSDERMAL PATCH 1 EACH TD (09:50)
[2024-08-10] MEDS: METHOCARBAMOL 500MG TABLET 1000 MG PO (09:50)
[2024-08-10] MEDS: ACETAMINOPHEN 500MG TAB 1000 MG PO (09:50)
--- NOTE | 2024-08-10 10:33 | PC.NURSE ---
Patient was straight stuck and the blood was just sent to the lab.
[2024-08-10 10:39] LABS: Basophils # 0.1 K/mm3 (0-0.2); Basophils % 0.5 % (0.1-2.0); Eosinophils # 0.1 Kmm3 (0.0-0.4); Eosinophils % 0.9 % (0.1-12.0); Hematocrit 35.6 % (37.0-47.0); Immature Granulocytes # 0.05 10^3uL; Immature Granulocytes % 0.5 %; Lymphocytes # 1.6 K/mm3 (0.7-4.5); Lymphocytes % 16.7 % (10-50); Mean Corpuscular HGB Conc 33.7 g/dL (31.8-35.4); Mean Corpuscular Hemoglobin 31.3 pg (27.0-31.2); Mean Platelet Volume 9.8 fl (7.4-10.4); Monocytes # 0.8 K/mm3 (0.1-1.0); Monocytes % 7.9 % (1.7-9.3); Neutrophils # 7.1 K/mm3 (1.8-7.8); Neutrophils % 73.5 % (37.0-80.0); Nucleated Red Blood Cells # 0 10^3/uL; Nucleated Red Blood Cells % 0 %; Platelet Count 255 K/mm3 (142-424); Red Blood Count 3.83 M/mm3 (4.20-5.40); Red Cell Distribution Width 14.3 % (11.5-17.5); Red Cell Distribution Width-SD 42.5 fL; White Blood Count 9.6 K/mm3 (4.8-10.8)
[2024-08-10 10:46] LABS: Albumin Level 4.4 g/dl (3.5-5.0); Chloride 102 mmol/L (98-107); Sodium 139 mmol/L (136-145)
[2024-08-10 10:47] LABS: Potassium 4.7 mmoL/L (3.5-5.1)
[2024-08-10 10:49] LABS: Alanine Aminotransferase 21 U/L (12-78); Albumin/Globulin Ratio 1.7 (1.1-1.8); Alkaline Phosphatase 75 U/L (38-126); Anion Gap 14.7 mEq/L (5-15); Aspartate Amino Transferase 27 U/L (14-36); Bilirubin,Total 0.6 mg/dl (0.2-1.3); Blood Urea Nitrogen 27 mg/dl (7-17); Carbon Dioxide 27 mmol/L (22.0-30.0); Creatinine Clearance Estimated 36 mL/min (50-200); Estimated Glomerular Filt Rate 47 ml/min (>60); GFR (African American) 57 ML/MIN (>60); Globulin 2.6 g/dL (1.3-3.2)
[2024-08-10 10:50] LABS: Calcium 9.2 mg/dl (8.4-10.2); Glucose 117 mg/dl (74-100)
[2024-08-10] MEDS: IOPAMIDOL-370 (76%);100ML BOTTLE 75 ML IV (11:22)
[2024-08-10] MEDS: SODIUM CHLORIDE 0.9% 10ML SYR (RAD ONLY) 10 ML IV (11:22)
[2024-08-10 11:57] LABS: Microscopic, Urine URINE MICROSCOPIC (MICROSCOPIC)
[2024-08-10 11:58] LABS: Appearance,Urine CLEAR (Clear); Bilirubin,Urine Negative (Negative); Blood, Urine TRACE-I (Negative); Color,Urine YELLOW (Yellow); Glucose,Urine (UA) Negative (Negative); Ketones,Urine Negative (Negative); Leukocyte Esterase,Urine Negative (Negative); Nitrate,Urine Negative (Negative); Protein,Urine Negative (Negative); Specific Gravity, Urine <= 1.005 (1.005-1.030); Urobilinogen,Urine 0.2 EU/dl (0.2)
[2024-08-10 12:08] LABS: Bacteria,Urine Trace /lpf; Squamous Epithelial Cell,Urine Occasional #/hpf (0-5); WBC,Urine Occasional #/hpf (0-3)
== END 2024-08-10 12:54 | disposition home or self-care (01) ==
PROVIDERS: Emergency Provider Emergency Medicine; PCP Family Medicine
DX: R06.02 Shortness of breath (principal); M54.50 Low back pain, unspecified; R11.0 Nausea
CPT/HCPCS: 72131; 72192; 74177; 80053; 81001; 85025; 93005; 99285; Q9967